=== PATIENT | male | born 1975 | race Two or more races ===

== ENCOUNTER 2016-04-12 09:44 | Emergency (ER) | payer OTHER ==
[~2016-04-12] VITALS: Ht 172.7 cm; Wt 83.6 kg
[2016-04-12 10:07] LABS: POINT-OF-CARE METER ID UU13113778
[2016-04-12 10:41] LABS: EOSINOPHIL (%) 0.4 % (0-5); EOSINOPHIL COUNT 0.1 K/uL (0-0.3); HEMATOCRIT 44.3 % (38.0-50.0); IMMATURE GRANULOCYTE (%) 0.2 % (0.0-0.7); IMMATURE GRANULOCYTE COUNT 0.3 K/uL; LYMPHOCYTE COUNT 1.2 K/uL (1.0-2.8); MCH 29.7 PG (29.0-34.0); MCHC 35.2 G/DL (30.0-36.0); MCV 84.4 FL (86-99); MEAN PLAT.VOLUME 9.4 uM^3 (9.0-12.4); MONOCYTE (%) 6.8 % (3-12); MONOCYTE COUNT 1.1 K/uL (0-0.8); NEUTROPHIL (%) 85.1 % (45-76); NEUTROPHIL COUNT 14.1 K/uL (1.8-6.4); PLATELET COUNT 227 K/uL (156-360); RBC DIS.WIDTH-CV 12.4 % (11.8-14.6); RBC DIS.WIDTH-SD 37.3 % (39-53); RED BLOOD COUNT 5.25 M/uL (4.00-5.50); WHITE BLOOD COUNT 16.5 K/uL (4.1-10.2)
[2016-04-12 10:50] LABS: CHLORIDE 106 mEq/L (99-109); POTASSIUM 4.3 mEq/L (3.7-5.4); SODIUM 137 mEq/L (136-147)
[2016-04-12 10:52] LABS: GLUCOSE 265 mg/dL (70-99)
[2016-04-12 10:53] LABS: ANION GAP 10 MEQ/L (2-14)
[2016-04-12 10:56] LABS: UREA NITROGEN (BUN) 19 mg/dL (9-23)
[2016-04-12 10:57] LABS: GFR ESTIMATE (CALCULATED) > 59 mL/min/
[2016-04-12 10:58] LABS: ADD MIUA? NO; BILIRUBIN NEGATIVE; BLOOD NEGATIVE; COLOR YELLOW ((YELLOW)); GLUCOSE (STRIP) NEGATIVE; KETONES NEGATIVE; LEUKOCYTES NEGATIVE; NITRITE NEGATIVE; PH, URINE 6.5 (5-8); PROTEIN (STRIP) TRACE; SPECIFIC GRAVITY 1.024 (1.000-1.030); UCUL ADDED? NO; UROBILINOGEN 0.2 MG/DL (0.2-1.0)
[2016-04-12] MEDS ORDERED: METFORMIN HCL500 MG PO (11:00)
[2016-04-12] MEDS ORDERED: METFORMIN HCL500 M4 PO (12:45)
[2016-04-12 13:02] VITALS: BP 117/81
== END 2016-04-12 13:03 | disposition home or self-care (01) ==
LOC: EME 09:44
PROVIDERS: Emergency Medicine
DX: R42 Dizziness and giddiness (principal); E11.9 Type 2 diabetes mellitus without complications; D72.829 Elevated white blood cell count, unspecified; Z79.84 Long term (current) use of oral hypoglycemic drugs
CPT/HCPCS: 71010; 80048; 81003; 82948; 85025; 93005; 99281; 99284